=== PATIENT | male | born 1980 | race Caucasian/White ===

== ENCOUNTER 2017-05-08 09:37 | Inpatient (IN) | payer SELFPAY ==
--- NOTE | 2017-05-08 10:24 | EDM.PDOC ---
ED HPI GENERAL MEDICAL PROBLEM - General Chief Complaint: Abdominal Pain Stated Complaint: APPENDIX? Time Seen by Provider: 05/08/17 10:13 Source of Information: Reports: Patient, Family, RN Notes Reviewed History Limitations: Reports: No Limitations - History of Present Illness INITIAL COMMENTS - FREE TEXT/NARRATIVE: 36-year-old gentleman presents emergency department today complaint of abdominal pain he states the pain was generalized but now has migrated down to the right lower quadrant he denies any fevers still passing gas he is not nauseated no significant past medical history Right Lower Abdominal Pain Score (Numeric/FACES): 8 - Related Data Allergies Allergy/AdvReac Type Severity Reaction Status Date / Time No Known Allergies Allergy Verified 05/08/17 10:00 Home Meds: Home Meds NK [No Known Home Meds] 05/08/17 [History] Past Medical History - Past Health History Medical/Surgical History: Denies Medical/Surgical History Social & Family History - Tobacco Use Smoking Status *Q: Never Smoker - Recreational Drug Use Recreational Drug Use: No ED ROS GENERAL - Review of Systems Review Of Systems: See Below Constitutional: Denies: Fever HEENT: Reports: No Symptoms Respiratory: Reports: No Symptoms Cardiovascular: Reports: No Symptoms GI/Abdominal: Reports: Abdominal Pain. Denies: Nausea, Vomiting : Reports: No Symptoms Musculoskeletal: Reports: No Symptoms Skin: Reports: No Symptoms Neurological: Reports: No Symptoms ED EXAM, GI/ABD - Physical Exam Exam: See Below Text/Narrative:: examination of abdomen he is tender with guarding right lower quadrant his knees are bent does not tolerate me straightening his leg psoas sign is positive heel tap sign is positive Exam Limited By: No Limitations General Appearance: Alert, No Apparent Distress Respiratory/Chest: No Respiratory Distress, Lungs Clear, Normal Breath Sounds, No Accessory Muscle Use Cardiovascular: Regular Rate, Rhythm, No Murmur Course - Vital Signs Last Recorded V/S: Last Vital Signs Temp 96.6 F 05/08/17 09:58 Pulse 51 L 05/08/17 09:58 Resp 18 05/08/17 09:58 BP 100/57 L 05/08/17 09:58 Pulse Ox 100 05/08/17 09:58 - Orders/Labs/Meds Orders: Active Orders 24 hr Category Date Time Status UA W/MICROSCOPIC [URIN] Urgent Lab 05/08/17 11:00 Ordered Labs: Laboratory Tests 05/08/17 05/08/17 05/08/17 Range/Units 10:16 10:16 10:16 WBC 15.2 H (4.5-11.0) K/uL RBC 4.86 (4.30-5.90) M/uL Hgb 15.0 (12.0-15.0) g/dL Hct 43.0 (40.0-54.0) % MCV 89 (80-98) fL MCH 31 (27-31) pg MCHC 35 (32-36) % Plt Count 246 (150-400) K/uL Neut % (Auto) 82 H (36-66) % Lymph % (Auto) 10 L (24-44) % [place] % (Auto) 8 H (2-6) % Eos % (Auto) 0 L (2-4) % Baso % (Auto) 0 (0-1) % Sodium 138 L (140-148) mmol/L Potassium 4.1 (3.6-5.2) mmol/L Chloride 102 (100-108) mmol/L Carbon Dioxide 27 (21-32) mmol/L Anion Gap 13.1 (5.0-14.0) mmol/L BUN 14 (7-18) mg/dL Creatinine 1.1 (0.8-1.3) mg/dL Est Cr Clr Drug Dosing 96.78 mL/min Estimated GFR (MDRD) > 60 (>60) Glucose 139 H (74-106) mg/dL Calcium 8.9 (8.5-10.1) mg/dL Total Bilirubin 0.9 (0.2-1.0) mg/dL AST 14 L (15-37) U/L ALT 21 (12-78) U/L Alkaline Phosphatase 79 (46-116) U/L Total Protein 7.6 (6.4-8.2) g/dL Albumin 3.7 (3.4-5.0) g/dL Globulin 3.9 H (2.3-3.5) g/dL Albumin/Globulin Ratio 1.0 L (1.2-2.2) Lipase 146 (73-393) U/L Departure - Departure Time of Disposition: 11:06 Disposition: Admitted As Inpatient 67 Condition: Good Clinical Impression: Right lower quadrant pain - Discharge Information Forms: ED Department Discharge - My Orders Last 24 Hours: My Active Orders 05/08/17 11:00 UA W/MICROSCOPIC [URIN] Urgent - Assessment/Plan Last 24 Hours: My Active Orders 05/08/17 11:00 UA W/MICROSCOPIC [URIN] Urgent Plan: Assessment Acuity = acute Site and laterality = right lower quadrant pain Etiology = suspicious for acute appendicitis Manifestations = none Location of injury = home Lab values = WBC elevated at 15.2 consistent leukocytosis, CMP within normal limits Plan discussed case with Dr. Black he agreed to evaluate the patient in the emergency room for possible surgical intervention Patient was in agreement with the plan all questions were answered This note was dictated using [employer] voice recognition software please call with any questions.
[2017-05-08] MEDS ORDERED: Bupivacaine 0.5%/EPINEPHrine 1:200,000 50 ML MDV ONE (11:42)
[2017-05-08] MEDS ORDERED: Ertapenem 1 GM in Sodium Chloride 0.9% 100 ML IV ONE (11:45)
[2017-05-08] MEDS ORDERED: fentaNYL 250 MCG/5 ML SDV ONE ×2 (11:49→12:32)
[2017-05-08] MEDS ORDERED: Propofol 200 MG/20 ML SDV ONE (11:50)
[2017-05-08] MEDS ORDERED: Neostigmine Methylsulfate 1 MG/ML 5 ML Syringe ONE (11:50)
[2017-05-08] MEDS ORDERED: Rocuronium 50 MG/5 ML Vial ONE (11:50)
[2017-05-08] MEDS ORDERED: Dexamethasone 4 MG/ML SDV ONE (11:50)
[2017-05-08] MEDS ORDERED: Ondansetron 4 MG/2 ML SDV ONE (11:50)
[2017-05-08] MEDS ORDERED: Docusate Sodium 100 MG Cap PO PRN (13:18)
[2017-05-08] MEDS ORDERED: diphenhydrAMINE 50 MG/ML SDV IVPUSH PRN (13:18)
[2017-05-08] MEDS ORDERED: Metoclopramide 10 MG/2 ML SDV IV PRN (13:18)
[2017-05-08] MEDS ORDERED: Promethazine 25 MG/ML SDV IM PRN (13:18)
[2017-05-08] MEDS ORDERED: Zolpidem 5 MG Tab PO PRN (13:18)
[2017-05-08] MEDS ORDERED: Benzocaine/Cetylpyridinium/Menthol Lozenge MUCMEM PRN (13:18)
[2017-05-08] MEDS ORDERED: Acetaminophen/HYDROcodone 325-10 MG Tab PO PRN (13:18)
[2017-05-08] MEDS ORDERED: Morphine 4 MG/ML Syringe IVPUSH PRN (13:30)
--- NOTE | 2017-05-08 20:46 | CONS ---
DATE OF SERVICE: 05/08/2017 REFERRING PHYSICIAN: CONSULTING PHYSICIAN: Herve Black MD REASON FOR CONSULTATION: Abdominal pain. HISTORY OF PRESENT ILLNESS: A pleasant 36-year-old male with right lower quadrant abdominal pain over the last 24 hours. This is a new problem. This is not associated with any nausea or vomiting. PAST MEDICAL HISTORY: None. PAST SURGICAL HISTORY: None. SOCIAL HISTORY: The patient is a pleasant [employer] gentleman, who presents with his today. FAMILY HISTORY: Noncontributory. REVIEW OF SYSTEMS: GENERAL: The patient is appropriate for his condition. HEENT: No symptoms. CARDIOVASCULAR: No history of myocardial infarction. RESPIRATORY: No shortness of breath. GASTROINTESTINAL: Normal bowel movements. GENITOURINARY: No dysuria. The remainder of review of systems is reviewed and is negative. PHYSICAL EXAMINATION: VITAL SIGNS: Stable. HEENT: Pupils are equal. NECK: Supple. LUNGS: Clear. ABDOMEN: Pain with palpation, rebound, and guarding of the right lower quadrant. LABORATORY RESULTS: Show an elevated white blood cell count. ASSESSMENT AND PLAN: Clinical appendicitis. PLAN: We will defer the CT scan at this time due to cost and the high likely probability that this is an appendicitis. We discussed risks, benefits, alternatives, and limitations including, but not limited to, infection, bleeding, and perforation of abdominal structures. The patient understands these risks and wishes to proceed. Herve Black MD /[id number]
[2017-05-09 08:20] VITALS: BP 113/58
--- NOTE | 2017-05-09 08:43 | OR ---
DATE OF PROCEDURE: 05/08/2017 PROCEDURE: Laparoscopic appendectomy. FINDINGS: Appendicitis, ruptured. COMPLICATIONS: None. OUTREACH CONSULTANT: None. ANESTHESIA: General/local. INDICATIONS: A pleasant 36-year-old male with right lower quadrant abdominal pain consistent with clinically diagnosed appendicitis. Risks benefits, alternatives, limitations including, but not limited to infection, bleeding, and perforation were explained to the patient and wished to proceed. PROCEDURE IN DETAIL: The patient was placed in supine position. A supraumbilical curvilinear incision was made. A Veress needle was used to enter the abdomen without abnormality. A drop test was performed without abnormality. The abdomen was subsequently insufflated. Two additional 5 mm ports were entered under direct visualization. The appendix was readily identified and was noted to be perforated with savanna pus noted. This will be sent for culture. The appendix will be sent to pathology for determination. The appendix was transected using a single load iglesias stapler and the appendiceal area would be inspected without abnormality. Greater than a liter of normal saline was used to irrigate the area and this was all suctioned irrigated around the liver and the pelvis. A 10 flat Torres-Rios drain was placed in approximatey to the appendiceal stump. The air was removed. The wounds were closed with 3-0 Vicryl and 4-0 Vicryl interrupted running fashion. Dermabond was applied. The patient tolerated the procedure well. Herve Black MD /[id number]
--- NOTE | 2017-05-09 09:01 | PN ---
DATE OF SERVICE: 05/09/2017 SUBJECTIVE: The patient is doing well today. Pain is well controlled. No nausea, vomiting, shortness of breath, or chest pain. OBJECTIVE: VITAL SIGNS: Stable. CARDIOVASCULAR: Regular rhythm and rate. RESPIRATORY: Lungs clear to consultation bilaterally. ABDOMEN: Bowel sounds are positive. Drain is serosanguineous. LABORATORY RESULTS: Show elevated white blood cell count of 15,000. ASSESSMENT/PLAN: Appendicitis. PLAN: The patient needs approximately 3-5 days of intravenous antibiotics with intermittent CBCs. The patient is a self payee and prefers an outpatient mode for this treatment. Therefore, the plan for him will be to give him IV antibiotics today which is consistent with Invanz 1 g IV q.24 hours. The patient is to return on a daily basis for IV antibiotics and a CBC every other day. The optimal therapy would be IV antibiotics for approximately 3 more days and discontinuation of IV antibiotics when there is a normal white blood cell count and the patient remains afebrile for 24 hours. This may continue on for up to 7 days or so. He is to keep the drain in until he follows up the clinic here. Herve Black MD /[id number]
[2017-05-09] MEDS ORDERED: Ertapenem 1 GM in Sodium Chloride 0.9% 100 ML IV SCH (12:00)
--- NOTE | 2017-05-31 10:02 | DISCH ---
DISCHARGE DIAGNOSIS: Laparoscopic appendectomy for ruptured appendicitis. HOSPITAL COURSE: This is a pleasant 36-year-old male, clinically diagnosed with appendicitis. The patient underwent laparoscopic appendectomy, which was uneventful. The patient recovered quite well and prior to discharge, he was having bowel movements, his pain was well controlled. He remained afebrile for greater than 24 hours prior to discharge. His white blood cell count continued to improve. FOLLOWUP: With Surgery in 7 to 10 days. ACTIVITY: No lifting greater than 30 pounds x30 days. DISCHARGE MEDICATIONS: Please see MAR, but include [place] for pain. CONSULTATIONS: Consultations during this hospitalization were none.
== END 2017-05-09 12:20 | disposition home or self-care (01) | DRG 340 ==
LOC: JP.ED 09:37 → JP.SDS 11:39 → JP.2SS 13:18
PROVIDERS: ADMIT Surgery; ATTEND Surgery
PROC: 0DTJ4ZZ Resection of Appendix, Percutaneous Endoscopic Approach (ICD-10-PCS; principal; 2017-05-08)
DX: K35.2 Acute appendicitis with generalized peritonitis (principal)
CPT/HCPCS: 36415; 80048; 80053; 81001; 83690; 85025; 85027; 87070; 87075; 87077; 87186; 87205; 88304; 96365; 99284; 99285-25; A9270-GY; J1100; J1335; J2405; J2704; J3010; J7030